=== PATIENT | female | born 1990 | race Caucasian/White ===

== ENCOUNTER → 2020-06-06 | Outpatient (CLI) | payer OTHER ==
[~2020-06-06] MED LIST: PREN1TAB60 PO
== END | disposition home or self-care (01) ==
LOC: STAR 10:45
PROVIDERS: ATTEND Anesthesiology
DX: Z01.812 Encounter for preprocedural laboratory examination (principal); Z20.828 Contact with and (suspected) exposure to other viral communicable diseases
CPT/HCPCS: 36415; 87635

== ENCOUNTER 2020-06-11 08:15 | Inpatient (IN) | payer OTHER ==
[~2020-06-11] VITALS: Ht 160 cm; Wt 67.3 kg
[2020-06-11] MEDS ORDERED: NEWBORN KIT ONE (10:25)
[2020-06-11] MEDS ORDERED: OXYTOCIN 30U/ 0.9% NaCL 500ML 500 ML ONE (10:25)
[2020-06-11] MEDS ORDERED: METOCLOPRAMIDE 5 MG/ML, 2ML ONE (10:25)
[2020-06-11] MEDS ORDERED: PREN1TAB60 PO (10:28)
[2020-06-11] MEDS ORDERED: METOCLOPRAMIDE 5 MG/ML, 2ML IV ONE (10:30)
[2020-06-11] MEDS ORDERED: SODIUM CITRATE/CITRIC ACID 30 ML UDC PO ONE (10:30)
[2020-06-11] MEDS ORDERED: LACTATED RINGERS 1,000 ML IVBOLUS ONE (10:30)
[2020-06-11 10:49] LABS: BASOPHILS % (AUTO) 0 % (0-1); EOSINOPHILS % (AUTO) 0 % (1-7); LYMPHOCYTES % (AUTO) 15 % (22-44); MEAN CORPUSCULAR HEMOGLOBIN 34.2 pg (27.0-34.8); MEAN CORPUSCULAR HGB CONC 34.3 g/dL (32.4-35.8); MEAN PLATELET VOLUME 8.7 fL (7.4-10.4); MONOCYTES % (AUTO) 7 % (2-9); NEUTROPHILS % (AUTO) 77 % (42-75); PLATELET COUNT 248 x10^3/uL (130-400)
[2020-06-11 10:51] LABS: MD NO
[2020-06-11] MEDS ORDERED: morphine SULFATE/PF 0.5 MG/ML, 10ML ONE (10:57)
[2020-06-11] MEDS ORDERED: EPINEPHRINE 1 MG/ML, 1ML ONE (11:02)
[2020-06-11 11:46] VITALS: BP 110/65
[2020-06-11] MEDS ORDERED: ONDANSETRON 2MG/ML, 2ML ONE (12:51)
[2020-06-11] MEDS ORDERED: OXYTOCIN 10 UNITS/ML, 1ML ONE (12:51)
[2020-06-11] MEDS ORDERED: CEFAZOLIN 1,000 MG ONE (12:51)
[2020-06-11] MEDS ORDERED: EPHEDRINE 50 MG/ML, 1ML ONE ×2 (12:51→13:18)
[2020-06-11] MEDS ORDERED: PHENYLEPHRINE 10 MG/ML ONE (12:51)
[2020-06-11] MEDS ORDERED: WATER-INJECTION,STERILE 10 ML IV ONE (12:51)
[2020-06-11] MEDS ORDERED: CARBOPROST TROMETHAMINE 250 MCG/ML, 1ML IM PRN (14:00)
[2020-06-11] MEDS ORDERED: METHYLERGONOVINE 0.2 MG/ML IM PRN (14:00)
[2020-06-11] MEDS: LACTATED RINGERS 1,000 ML IV SCH ×2 (14:00→22:00)
[2020-06-11] MEDS ORDERED: morphine SULFATE 10 MG/ML, 1ML IVPush PRN ×2 (14:00)
[2020-06-11] MEDS ORDERED: OXYcodone/APAP 5/325MG TABLET PO PRN ×3 (14:00→15:30)
[2020-06-11] MEDS ORDERED: ONDANSETRON 2MG/ML, 2ML IV PRN (14:00)
[2020-06-11] MEDS ORDERED: MISOPROSTOL 200 MCG TABLET PR PRN (14:00)
[2020-06-11] MEDS ORDERED: CALCIUM CARBONATE 500 MG TAB.CHEW PO PRN (14:00)
[2020-06-11] MEDS ORDERED: ACETAMINOPHEN 325 MG TABLET PO PRN (14:00)
[2020-06-11] MEDS ORDERED: LACTATED RINGERS 1,000 ML IV SCH (14:00)
[2020-06-11] MEDS ORDERED: IBUPROFEN 600 MG TABLET PO PRN (14:00)
[2020-06-11] MEDS: OXYTOCIN 30U/ 0.9% NaCL 500ML 500 ML IV SCH (14:03)
[2020-06-11] MEDS ORDERED: KETOROLAC 30 MG/1 ML ONE (15:22)
[2020-06-11] MEDS: KETOROLAC 30 MG/1 ML IVPush SCH ×2 (15:24→21:32)
[2020-06-11] MEDS ORDERED: NALOXONE 0.4 MG/ML, 1ML IV PRN (15:30)
[2020-06-11] MEDS ORDERED: KETOROLAC 30 MG/1 ML IVPush PRN (15:30)
[2020-06-11] MEDS ORDERED: HYDROmorphone 1 MG/ML, 1ML INJ IVPush PRN (15:30)
[2020-06-11] MEDS ORDERED: OXYcodone 5 MG/5 ML ORAL.SOL UDC PO PRN (15:30)
[2020-06-11] MEDS ORDERED: DIPHENHYDRAMINE 50 MG/ML, 1ML IV PRN (15:30)
[2020-06-11 16:33] VITALS: BP 111/64
[2020-06-11 20:00] VITALS: BP 117/67
[2020-06-12 00:15] VITALS: BP 107/66
[2020-06-12] MEDS: KETOROLAC 30 MG/1 ML IVPush SCH (03:32)
[2020-06-12 03:38] VITALS: BP 104/62
[2020-06-12 05:58] LABS: BASOPHILS % (AUTO) 0 % (0-1); EOSINOPHILS % (AUTO) 0 % (1-7); LYMPHOCYTES % (AUTO) 12 % (22-44); MEAN CORPUSCULAR HEMOGLOBIN 34.7 pg (27.0-34.8); MEAN CORPUSCULAR HGB CONC 34.2 g/dL (32.4-35.8); MEAN PLATELET VOLUME 8.5 fL (7.4-10.4); MONOCYTES % (AUTO) 7 % (2-9); NEUTROPHILS % (AUTO) 81 % (42-75); PLATELET COUNT 195 x10^3/uL (130-400); RED BLOOD COUNT 3.06 x10^6/uL (3.82-5.3); RED CELL DISTRIBUTION WIDTH 12.9 % (9.6-15.2)
[2020-06-12] MEDS: LACTATED RINGERS 1,000 ML IV SCH ×3 (06:00→22:00)
[2020-06-12 06:12] LABS: MD NO
[2020-06-12] MEDS ORDERED: IBUPROFEN 200 MG TABLET PO PRN (07:00)
[2020-06-12] MEDS ORDERED: OXYcodone/APAP 5/325MG TABLET PO PRN (07:00)
[2020-06-12] MEDS: DOCUSATE 100 MG CAPSULE PO PRN ×2 (07:54→20:22)
[2020-06-12] MEDS: PRENATAL VIT/IRON/FA 1 EACH TABLET PO SCH (07:54)
[2020-06-12] MEDS: SIMETHICONE 80 MG CHEW TAB PO PRN ×2 (07:54→17:04)
[2020-06-12 08:00] VITALS: BP 104/64
[2020-06-12] MEDS: OXYTOCIN 30U/ 0.9% NaCL 500ML 500 ML IV SCH ×3 (10:00→20:00)
[2020-06-12] MEDS: OXYcodone/APAP 5/325MG TABLET PO PRN (20:21)
[2020-06-12 20:28] VITALS: BP 108/72
[2020-06-12] MEDS: IBUPROFEN 600 MG TABLET PO PRN (23:06)
[2020-06-13] MEDS: IBUPROFEN 600 MG TABLET PO PRN ×2 (05:14→11:40)
[2020-06-13] MEDS: LACTATED RINGERS 1,000 ML IV SCH (05:49)
[2020-06-13] MEDS: OXYTOCIN 30U/ 0.9% NaCL 500ML 500 ML IV SCH (05:50)
[2020-06-13 08:00] VITALS: BP 110/71
[2020-06-13] MEDS: DOCUSATE 100 MG CAPSULE PO PRN (08:01)
[2020-06-13] MEDS: PRENATAL VIT/IRON/FA 1 EACH TABLET PO SCH (08:01)
[2020-06-13] MEDS: OXYcodone/APAP 5/325MG TABLET PO PRN ×2 (08:01→13:41)
[2020-06-13] MEDS ORDERED: OXYC-302 PO (09:00)
[2020-06-13] MEDS ORDERED: IBUP-1222 PO (09:00)
[2020-06-16] MEDS ORDERED: IBUPROFEN 600 MG TABLET PO PRN (21:00)
== END 2020-06-13 15:50 | disposition home or self-care (01) | DRG 788 ==
LOC: LDIP 10:12 → 2NW 15:33
PROVIDERS: ADMIT Obstetrics & Gynecology; ATTEND Obstetrics & Gynecology
PROC: 10D00Z1 Extraction of Products of Conception, Low, Open Approach (ICD-10-PCS; principal; 2020-06-11)
DX: O34.211 Maternal care for low transverse scar from previous cesarean delivery (principal); O33.9 Maternal care for disproportion, unspecified; O62.2 Other uterine inertia; Z37.0 Single live birth; Z3A.39 39 weeks gestation of pregnancy; Z80.3 Family history of malignant neoplasm of breast
CPT/HCPCS: 36415; 85025; 86592; 86850; 86900; G0378; J0171; J0690; J1885; J2274; J2405; J2370; J2590; J2765; J7120